=== PATIENT | female | born 1980 | race Caucasian/White ===

== ENCOUNTER → 2019-08-24 12:54 | Outpatient (CLI) | payer BC, SELFPAY ==
[2019-08-25 18:59] LABS: Covid-19 Nasal PCR Sendout UK Not Detected
== END ==
PROVIDERS: PCP Family Medicine; Visit Provider Family Medicine
DX: Z03.818 Encounter for observation for suspected exposure to other biological agents ruled out (principal)
CPT/HCPCS: U0003

== ENCOUNTER 2020-10-12 08:56 | Emergency (ER) | payer BC, OTHER, SELFPAY ==
[2020-10-12 09:00] VITALS: BP 135/70; PULSE 69; RESP 18; TEMP 36.7; O2SAT 100; BMI 25.8
[2020-10-12 09:14] VITALS: BP 135/70; PULSE 69; RESP 18; TEMP 36.7; O2SAT 100
--- NOTE | 2020-10-12 09:17 | HMH.EDUTC ---
[facility] [place] Disposition Clinical Impression: Exposure to COVID-19 virus Disposition: Home, Self-Care Condition on Discharge: Good Instructions: DI for COVID-19 (Suspected or Confirmed ), Preventing the Spread of Coronavirus Discharge Instructions Additional Instructions: *Monitor Temp, Over the counter Motrin or Tylenol as directed/as needed Tylenol every 4 hours and Motrin every 6 hours (as long as your family doctor has told you that you can take it) for fever or pain. and straight to ER if unable to lower temp less than 101.0 after medication given Follow up IMMEDIATELY for new or worsening symptoms or no Noticeable improvement over the next 48-72 hours. 911 for difficulty breathing or swallowing You were tested for today for COVID19 your test result should be back in the next 24-48 hours, you may call to the [facility] to see if your test results are back in the next 48 hours [phone] [facility] hours are 9am-9pm You was given a handout with instructions for Self Quarantine and Self isolation for while you wait on test results and what to do if they are positive If you are positive the Health Dept will be contacting you also Make sure to take your Vitamins Vit. C Vit D and Zinc if you can take them Referrals: Ellis Melgar MD [Primary Care Provider] - As needed Forms: Work/School Release Time of Disposition: 09:20 Medical Decision Making - Aren Inquiry Pt receiving controlled substance: No Aren was queried for this patient: No Vital Signs: 10/12/20 09:00 10/12/20 09:14 Temperature 98.0 F 98.0 F Temperature Source Oral Pulse Rate 69 Pulse Rate [Right Brachial] 69 Respiratory Rate 18 18 Blood Pressure 135/70 Blood Pressure [Right Arm] 135/70 Blood Pressure Mean [Right Arm] 91 Blood Pressure Source [Right Arm] Automatic Cuff Blood Pressure Position [Right Arm] Sitting 02 Sat by Pulse Oximetry 100 Oxygen Delivery Method Room Air Orders (Tests/Meds): ORDERS Category Date Time Status Covid-19 Nasal PCR ([facility]) Routine Lab 10/12/20 09:14 Ordered [facility] [place] HPI - General Stated complaint: covid test Time Seen by Provider: 10/12/20 09:17 Mode of Arrival: Ambulatory Source of Information: Patient Limitations: No Limitations Description of Symptoms (Recalled from Triage Doc. by RN): COVID TEST D/T EXPOSURE, DENIES SYMPTOMS HEENT Symptoms (Recalled from RN notes): No Resp Symptoms (Recalled from RN notes): No Skin Symptoms (Recalled from RN notes): No MS Symptoms (Recalled from RN notes): No Functional Status (Recalled from RN notes): WNL - History of Present Illness Provider Complaint: Patient state that she was around someone in her home that was positive for COVID but she is not having any symptoms so her work wanted her to get tested before she can come back - Related Data Allergies Allergy/AdvReac Type Severity Reaction Status Date / Time cephalexin [From KEFLEX] Allergy Intermediate I-HIVES Unverified 01/30/17 14:36 - Worker's Comp Is this a Worker's Comp case?: No [facility] History - Hepatitis A Screen Drug use history?: No High risk sexual behaviors?: No History of sexually transmitted infection?: No Currently employed?: No Childcare worker?: No Do you have indoor plumbing?: Yes Do you have electricity?: Yes Attestation statement:: This patient has been screened for Hepatitis A risk factors. I have reviewed the patient's past medical history: Yes ROS Obtained: Yes All systems reviewed & no additional complaints, Yes Systems reviewed as appropriate & no additional complaints - Constitutional Constitutional: Reports system reviewed and no additional complaints, except as docu, Denies body ache, Denies chills, Denies fever(s) - ENT Ears, Nose, Mouth, and Throat: Reports system reviewed and no additional complaints, except as docu, Denies nasal congestion, Denies nasal discharge, Denies sore throat - Cardiovascular Cardiovascular: Reports system reviewed and no additional co
== END 2020-10-12 09:29 | disposition home or self-care (01) ==
PROVIDERS: Emergency Provider Nurse Practitioner; PCP Family Medicine
DX: Z20.822 Contact with and (suspected) exposure to COVID-19 (principal)
CPT/HCPCS: 99202; G0463; U0003

== ENCOUNTER 2020-12-09 13:25 | Emergency (ER) | payer BC, OTHER, SELFPAY ==
[2020-12-09 13:26] VITALS: BP 162/103; PULSE 91; RESP 16; TEMP 36.9; O2SAT 100; BMI 25.8
--- NOTE | 2020-12-09 13:56 | HMH.EDGENADL ---
ED Disposition Clinical Impression: Laceration of axilla, complicated Qualifiers: Encounter type: initial encounter Laterality: left Qualified Code(s): S41.112A - Laceration without foreign body of left upper arm, initial encounter Disposition: Home, Self-Care Condition on Discharge: Good Additional Instructions: Keep wound clean and dry. Leave it covered for 24 hours. Change dressing every 24 hours for 3 days. After that may leave it open to air when inactive. Last thing wet, first thing dry after 3 days. Stitches out in 5 to 7 days. PCP follow-up in 1 to 2 days. Return to emergency department for redness, thick drainage, worsening pain or bleeding. Prescriptions: Sulfamethoxazole/Trimethoprim [Bactrim DS tablet] 1 each PO BID #10 tab Transmission Status: Pending to [facility] Referrals: Ellis Melgar MD [Primary Care Provider] - 3 days Time of Disposition: 15:54 - Critical Care Critical Care Time: No Attestation: On 12/09/20, the high probability of a clinically significant, sudden or life threatening deterioration of the following system(s) required my full and direct attention, intervention and personal management. The time I documented below is in addition to time spent performing reported procedures but includes the following listed in this critical care notation. Medical Decision Making - Medical Records Medical records reviewed: Yes: I reviewed the patient's medical records. - Aren Inquiry Pt receiving controlled substance: No Vital Signs: 12/09/20 13:26 Temperature 98.4 F Temperature Source Oral Pulse Rate [Right] 91 H Respiratory Rate 16 Blood Pressure [Right Arm] 162/103 H Blood Pressure Mean [Right Arm] 122 Blood Pressure Source [Right Arm] Automatic Cuff Blood Pressure Position [Right Arm] Sitting 02 Sat by Pulse Oximetry 100 Oxygen Delivery Method Room Air Orders (Tests/Meds): ED MEDICATIONS Discontinued Medications Generic Name Dose Route Start Last Admin Trade Name Freq PRN Reason Stop Dose Admin Oxycodone/Acetaminophen 1 each 12/09/20 14:56 12/09/20 15:00 Oxycodone 7.5mg W/Apap 325mg Tablet PO 12/09/20 14:57 1 each ONCE ONE Administration Tetanus/Reduced Diphtheria/Acell Pertussis 0.5 ml 12/09/20 14:21 Tet/Diphth/Pert-Adult 0.5ml Syringe IM 12/09/20 14:22 .ONCE ONE ORDERS Category Date Time Status XR ribs LT min 3V w CXR1V Stat Exams 12/09/20 14:55 Taken - Radiology Data #1 Image(s): Other (Ribs) Image Reviewed: Yes I reviewed the patient's radiology results Preliminary Findings: Normal/NAD Medical Decision Narrative: 40yo F evaluated after a fall. Patient has a 7 cm laceration to her left axilla. See procedure note for details of repair. Tolerated well. Tetanus updated the emergency department. Chest x-ray for rib injury is benign. Discussed wound care and timing of suture removal with the patient. She voiced understanding and agreement the plan. Will discharge home on antibiotics. General Adult HPI - General Chief complaint: Fall Stated complaint: AO 1028 fall, left side pain/ wound Time Seen by Provider: 12/09/20 13:56 Mode of Arrival: Ambulatory Limitations: No Limitations Description of Symptoms (Recalled from ER Triage Doc. by RN): pt advises she was shampooing her carpets when she tripped and fell down her steps. Pt denies any LOC/neck/back/ head pain. Pt has laceration under her left arm near her axillary area. Pt has area on her left thigh/hip that is swollen with an abrasion in the center. Left ankle also has some bruising with minor swelling. - History of Present Illness HPI narrative: 40yo F presents the emergency department after slipping and falling down a few stairs while shampooing her carpet. Patient has a large laceration to her left axilla. She denies head strike or LOC. She does complain of some left rib pain and right hip pain. She was able to ambulate into the emergency depar
--- NOTE | 2020-12-09 14:55 | XR_ITS ---
PROCEDURE: XR RIBS LT MIN 3V W CXR1V CLINICAL INDICATION: fall With left-sided rib pain COMPARISON: No exams were available for comparison FINDINGS: There is a possible fracture of the posterior aspect of the left 10th rib. No other definite fractures identified. Lungs appear clear. No pleural fluid. No pneumothorax. IMPRESSION: Possible fracture of posterior left 10th rib. Dictated by: Autumn Zhao MD 12/09/2020 15:47 Autumn Zhao MD in [place] 12/09/2020 15:47
[2020-12-09 16:18] VITALS: BP 110/70; PULSE 70; RESP 16; TEMP 36.8; O2SAT 98
== END 2020-12-09 16:19 | disposition home or self-care (01) ==
PROVIDERS: Emergency Provider Family Medicine; PCP Family Medicine
DX: S41.112A Laceration without foreign body of left upper arm, initial encounter (principal); W10.9XXA Fall (on) (from) unspecified stairs and steps, initial encounter; Y92.019 Unspecified place in single-family (private) house as the place of occurrence of the external cause; Z23 Encounter for immunization
CPT/HCPCS: 12002; 71101; 90715; 99282

== ENCOUNTER 2020-12-16 13:52 | Emergency (ER) | payer BC, OTHER, SELFPAY ==
[2020-12-16 14:30] VITALS: BP 130/78; PULSE 78; RESP 18; TEMP 36.7; O2SAT 98; BMI 23.5
[2020-12-16 14:47] VITALS: BP 130/78; PULSE 78; RESP 18; TEMP 36.7; O2SAT 98
== END 2020-12-16 14:50 | disposition home or self-care (01) ==
LOC: UTC 13:57
PROVIDERS: Emergency Provider Emergency Medicine; PCP Family Medicine
DX: S41.112D Laceration without foreign body of left upper arm, subsequent encounter (principal)

== ENCOUNTER → 2022-10-03 10:42 | Outpatient (CLI) | payer OTHER, SELFPAY ==
--- NOTE | 2022-10-03 10:47 | MM_ITS ---
PROCEDURE INFORMATION: Exam: MG Bilateral Screening 3D Mammography Exam date and time: 10/03/2022 10:49 AM Age: 42 years old Clinical indication: Screening examination; No personal or family history of breast cancer TECHNIQUE: Imaging protocol: Bilateral Screening tomosynthesis and 2D mammography including computer-aided detection (CAD) when performed. COMPARISON: No relevant prior studies available. FINDINGS: MAMMOGRAPHY: Breast composition: The breasts are extremely dense, which lowers the sensitivity of mammography. Mass: None. Architectural distortion: None. Calcifications: No suspicious calcifications. Asymmetric density: None. Skin thickening: None. Axillary adenopathy: None. IMPRESSION: No mammographic evidence of malignancy. Annual screening is recommended unless otherwise clinically indicated. ASSESSMENT: BI-RADS Category 1: Negative
== END ==
PROVIDERS: PCP Family Medicine; Visit Provider Nurse Practitioner Family
DX: Z12.31 Encounter for screening mammogram for malignant neoplasm of breast (principal)
CPT/HCPCS: 77063; 77067

== ENCOUNTER 2023-10-17 13:13 | Emergency (ER) | payer OTHER, SELFPAY ==
[2023-10-17 13:25] VITALS: BP 142/96; PULSE 77; RESP 19; TEMP 36.8; O2SAT 100; BMI 28.3
[2023-10-17 13:46] LABS: UTC Strep Screen (Rapid) Negative (Negative)
--- NOTE | 2023-10-17 13:58 | EXP.UTC ---
Discharge Plan Disposition Patient Disposition: Home, Self-Care Condition: Good Prescriptions Prescriptions: New azithromycin [Zithromax Z-Enoc] 250 mg tablet See Rx Instructions .ROUTE .COMPLEX 5 Days Qty: 6 0RF Rx Instructions: For 250 mg dose pack: take 500 mg today (day 1), then 250 mg for 4 days (days 2-5) methylprednisolone [Medrol (Enoc)] 4 mg tablets,dose pack See Rx Instructions .Route .COMPLEX 6 Days Qty: 21 0RF Rx Instructions: taper pack; Referrals Follow up/Referrals: Mirta Plata PA [Primary Care Provider] - See instructions Activity Restrictions/Add. Instructions Additional Instructions/Restrictions: *Monitor Temp, Over the counter Motrin or Tylenol as directed/as needed Tylenol every 4 hours and Motrin every 6 hours (as long as your family doctor has told you that you can take it) for fever or pain. and straight to ER if unable to lower temp less than 101.0 after medication given *Warm salt water gargles may help to soothe the throat *Throat Lozenges? *Warm fluids like tea with honey may help to soothe the throat? *Sleep elevated *Humidifier/Vaporizer Your throat swab was sent for culture. Those results are typically sent to your primary care. Be sure to follow up in 2-3 days with your family doctor/primary care physician if no improvement so they can review those result and treat if necessary. If you don?t have a primary care doctor, I recommend you get one but in the mean time, you will have to return to a walk in clinic Follow up IMMEDIATELY for new or worsening symptoms or no Noticeable improvement over the next 48-72 hours. 911 for difficulty breathing or swallowing Clinical Impressions Clinical Impression: Pharyngitis Instructions Patient Instructions: Sore Throat Print Language Print Language: Beninese Discharge ED Provider: Sarah Downing [facility] [place] HPI General Stated complaint: sore throat Mode of Arrival: Ambulatory Source of Information: Patient Limitations: No Limitations Time Seen by Provider: 10/17/23 13:25 Description of Symptoms (Recalled from Triage Doc. by RN): PATIENT C/O SORE THROAT X 3 DAYS HEENT Symptoms (Recalled from RN notes): Yes Resp Symptoms (Recalled from RN notes): No Skin Symptoms (Recalled from RN notes): No MS Symptoms (Recalled from RN notes): No Functional Status (Recalled from RN notes): WNL History of Present Illness Provider Complaint: Patient states that she has been having severe sore throat for the last 3 days states daughter had strep throat last week and feels like she may have it now so she came in to get checked Related Data Previous Rx's ?Medication ?Instructions ?Recorded azithromycin 250 mg tablet See Rx Instructions PO .COMPLEX 5 10/17/23 (Zithromax Z-Enoc) days #6 tabs methylprednisolone 4 mg tablets in See Rx Instructions .Route 10/17/23 a dose pack (Medrol (Enoc)) .COMPLEX 6 days #21 tabs Allergies Allergy/AdvReac Type Severity Reaction Status Date / Time cephalexin [From KEFLEX] Allergy Intermediate I-HIVES Verified 12/09/20 15:00 Worker's Comp Is this a Worker's Comp case?: No [facility] Disclaimer: The information contained in this section may have been updated after the patient was seen, as this information can be updated by other users. Social History Smoking Status: Current every day smoker tobacco type: cigarettes alcohol intake: never current occupational status: employed Travel in the last 8 weeks: None ROS Obtained: Yes All systems reviewed & no additional complaints except as documented and Yes Systems reviewed as appropriate & no additional complaints except as documented Constitutional Constitutional: Reports system reviewed and no additional complaints, except as documented, Reports as per HPI and Reports headache(s) ENT Ears, Nose, Mouth, and Throat: Reports system reviewed and no additional complaints, except as documented, Reports as per HPI, Reports headache(s) and Reports sore throat Cardiovascular Cardiovascular: Reports system reviewed and no additional complaints, except as documented and Reports as per HPI Respiratory Respiratory: Reports system reviewed and no additional complaints, except as documented and Reports as per HPI Gastrointestinal Gastrointestingal: Reports system reviewed and no additional complaints, except as documented and as per HPI Genitourinary Female Genitourinary: Reports system reviewed and no additional complaints, except as documented and Reports as per HPI Neurologic Neurologic: Reports headache(s) Physical Exam General General appearance: alert and in no apparent distress ENT ENT exam: Present mucous membranes moist Expanded ENT Exam Nose exam: Absent sinus tenderness Throat exam: Present tonsillar erythema Respiratory Respiratory exam: Present normal lung sounds bilaterally; Absent respiratory distress or wheezes Cardiovascular Cardiovascular exam: Present regular rate, normal rhythm and normal heart sounds Neurological Exam Neurological exam: Present alert, oriented X3 and normal gait Medical Decision Making Aren Inquiry Pt receiving controlled substance: No Aren was queried for this patient: No Vital Signs: 10/17/23 13:25 Temperature 98.3 F Temperature Source Oral Pulse Rate [Left Brachial] 77 Respiratory Rate 19 Blood Pressure [Left Arm] 142/96 H Blood Pressure Mean [Left Arm] 111 Blood Pressure Source [Left Arm] Automatic Cuff Blood Pressure Position [Left Arm] Sitting 02 Sat by Pulse Oximetry 100 Oxygen Delivery Method Room Air Lab Data Lab results reviewed: Yes I reviewed the patient's lab results. Lab Results 10/17/23 13:37: Strep Scn Rapid Clinic Negative Orders (Tests/Meds): ORDERS Category Date Time Status Strep Screen Confirmation Stat Micro 10/17/23 13:37 Received
[2023-10-17 14:09] VITALS: BP 142/96; PULSE 77; RESP 19; TEMP 36.8; O2SAT 100
== END 2023-10-17 14:12 | disposition home or self-care (01) ==
PROVIDERS: Emergency Provider Nurse Practitioner; PCP Physician Assistant
DX: J02.9 Acute pharyngitis, unspecified (principal)
CPT/HCPCS: 87880; 99212; 99214; G0463